=== PATIENT | female | born 1965 | race Caucasian/White ===

== ENCOUNTER → 2017-11-01 | Outpatient (CLI) | payer OTHER ==
[~2017-11-01] MED LIST: ACE3 PO; CIP500 PO; CITA-156 PO; DIC10 PO; KET10 PO; KETO10TA PO; LEVO1TAB31 PO; METR-1 PO; OND4 PO; PRO25 PO
--- NOTE | 2017-11-01 15:55 | RADIOLOGY IMAGING REPORT ---
FACILITY: [facility] - [place] PATIENT NAME: MAGGY BRISENO : [id number] MR: [id number] V: [id number] EXAM DATE: ORDERING PHYSICIAN: ANGELA LECHUGA TECHNOLOGIST: Edwige Douglass PROCEDURE:BILATERAL DIGITAL SCREENING MAMMOGRAM WITH CAD ASSISTED INTERPRETATION & 3D TOMOSYNTHESIS COMPARISON:Prior mammograms 09/26/16, 09/18/15, 01/07/14, 12/27/12. INDICATIONS:screening FINDINGS: There are bilateral subpectoral breast implants in place. There is no demonstration of implant rupture or leakage. Moderately dense fibroglandular tissue is seen anterior to the implants. The parenchymal pattern has remained stable allowing for difference in mammographic technique & patient positioning. There is no evidence of malignant appearing mass, malignant appearing calcifications or other secondary sign of malignancy in either breast. DIAGNOSTIC CATEGORY 2--BENIGN FINDING. RECOMMENDATIONS: ROUTINE MAMMOGRAM AND CLINICAL EVALUATION. IMPRESSION: BIRADS 2: Benign finding. No significant abnormality is seen. Dictated by: Priscila Quintero M.D. on 11/01/2017 at 14:39 Transcribed by: LEONCIO on 11/01/2017 at 14:54 Approved by: Priscila Quintero M.D. on 11/01/2017 at 15:55 [facility]
== END ==
LOC: MAMO 01:26
PROVIDERS: ATTEND Family Medicine
DX: Z12.31 Encounter for screening mammogram for malignant neoplasm of breast (principal); Z98.82 Breast implant status
CPT/HCPCS: 77063; 77067

== ENCOUNTER → 2018-10-11 | Outpatient (CLI) | payer OTHER ==
--- NOTE | 2018-10-11 15:59 | RADIOLOGY IMAGING REPORT ---
FACILITY: [facility] PATIENT NAME: Deena Tran : 1965 MR: [id number] V: [id number] EXAM DATE: ORDERING PHYSICIAN: ANGELA LECHUGA TECHNOLOGIST: Location: [facility] - [place] Patient: Deena Tran : 1965 Visit/Account:[id number] Date of Sevice: 10/11/2018 PELVIC HISTORY: Uterine enlargement, premenopausal TECHNIQUE: Transvaginal and transabdominal ultrasound pelvis. To evaluate pelvic anatomy COMPARISON: None. FINDINGS: Uterus: Retroverted; 7.5 cm length x 5.3 cm AP x 5.7 cm transverse. Myometrium: There is a 2.1 x 1.9 x 2.1 cm submucosal fibroid in the mid uterus. There is a 1.5 x 1.3 x 1.7 cm calcified posterior intramural fibroid in the mid uterus. There is a 3.2 x 2.8 x 2.9 cm fu ndal fibroid. Endometrium: Endometrium is thickened at 24 mm. There suggestion of an endometrial mass filling the endometrial cavity; double thickness 24 mm. Cervix: Grossly negative. Ovaries: Right - 1.7 x 0.9 x 0.7 centimeters Left - 2.7 x 1 x 2 cm Blood flow is documented in each ovary by duplex Doppler ultrasound. Adnexa: Grossly unremarkable. Free pelvic fluid: None. IMPRESSION: Multiple uterine fibroids as described above Endometrium is thickened at 24 mm with suggestion of an endometrial mass filling the endometrial reggie l Atrophic ovaries Report Dictated By: Priscila Quintero MD at 10/11/2018 3:50 PM Report E-Signed By: Priscila Quintero MD at 10/11/2018 3:55 PM WSN:[id number]
== END ==
LOC: US 00:18
PROVIDERS: ATTEND Family Medicine
DX: D25.9 Leiomyoma of uterus, unspecified (principal)
CPT/HCPCS: 76856

== ENCOUNTER → 2018-11-15 | Outpatient (CLI) | payer OTHER ==
--- NOTE | 2018-11-15 17:48 | RADIOLOGY IMAGING REPORT ---
FACILITY: [facility] PATIENT NAME: MAGGY BRISENO : [id number] MR: [id number] V: [id number] EXAM DATE: ORDERING PHYSICIAN: ANGELA LECHUGA TECHNOLOGIST: Marlee Oviedo PROCEDURE: BILATERAL DIGITAL SCREENING MAMMOGRAM WITH CAD ASSISTED INTERPRETATION & 3D TOMOSYNTHESIS REASON FOR STUDY: Screening. FAMILY HISTORY OF BREAST CANCER: Great maternal aunt. BREAST PROCEDURES/TREATMENTS: None. Augmentation 2001. COMPARISON: From 11/01/2017 back to 12/27/2012. VIEWS OBTAINED: 2D & 3D full field CC & MLO including the breast implants. There are bilateral breast implants which may limit visualization of the breast tissue. BREAST DENSITY: The breasts are heterogeneously dense which may obscure small masses. MAMMOGRAM FINDINGS: There are no mass lesions, architectural distortions, or clustering's of suspicious microcalcifications. No interval change when compared to previous examinations. Breast implants well maintained. IMPRESSION: BIRADS 1: Negative. DIAGNOSTIC CATEGORY 1--NEGATIVE. RECOMMENDATIONS: ROUTINE MAMMOGRAM AND CLINICAL EVALUATION. Dictated by: Sherif Comer M.D. on 11/15/2018 at 14:24 Transcribed by: LEONCIO on 11/15/2018 at 14:38 Approved by: Sherif Comer M.D. on 11/15/2018 at 17:45 [facility]
== END ==
LOC: MAMO 00:49
PROVIDERS: ATTEND Family Medicine
DX: Z12.31 Encounter for screening mammogram for malignant neoplasm of breast (principal); Z98.82 Breast implant status
CPT/HCPCS: 77063; 77067